=== PATIENT | female | born 1995 | race Hispanic/Latino ===

== ENCOUNTER 2020-08-06 13:48 | Outpatient (CLI) | payer OTHER ==
[2020-08-07 12:00] LABS: SARS-CoV-2 MS2 Positive; SARS-CoV-2 N Gene Negative; SARS-CoV-2 S Gene Negative; SARS-CoV-2 by NAA Not Detected (NotDetected); SARS-CoV-2 orf1ab Negative
== END 2020-08-06 13:49 | disposition home or self-care (01) ==
LOC: LABBT 13:48
PROVIDERS: ATTEND Advanced Practice Midwife
DX: Z20.828 Contact with and (suspected) exposure to other viral communicable diseases (principal)
CPT/HCPCS: 87635; U0003

== ENCOUNTER 2020-08-08 09:49 | Inpatient (IN) | payer OTHER ==
[2020-08-08] MEDS ORDERED: Ondansetron PF 4 MG/2 ML Vial IVP PRN ×2 (10:13→16:50)
[2020-08-08] MEDS ORDERED: Butorphanol Tartrate 1 MG/ML VIAL SLOW IVP PRN (10:13)
[2020-08-08] MEDS ORDERED: Acetaminophen 500 MG TAB PO PRN (10:13)
[2020-08-08] MEDS ORDERED: Methylergonovine 0.2 MG/ML VIAL IM PRN (10:13)
[2020-08-08] MEDS ORDERED: Misoprostol 200 MCG TAB PR PRN (10:13)
[2020-08-08] MEDS ORDERED: hydrALAZINE 20 MG/ML VIAL SLOW IVP PRN ×2 (10:13→16:50)
[2020-08-08] MEDS ORDERED: NS / Oxytocin 40 units/1000ml 1,000 ML IV PRN (10:13)
[2020-08-08] MEDS ORDERED: Lidocaine 1% (PF) 30 ML VIAL SC PRN (10:13)
[2020-08-08] MEDS ORDERED: Carboprost 250 MCG/ML AMP IM PRN (10:13)
[2020-08-08] MEDS ORDERED: HYDROcodone/Acetaminophen 5/325 mg Tablet PO PRN ×2 (10:13)
[2020-08-08] MEDS ORDERED: Ibuprofen 800 MG TAB PO PRN (10:13)
[2020-08-08] MEDS ORDERED: Diphenoxylate HCl/Atropine Tablet PO PRN ×2 (10:13)
[2020-08-08] MEDS ORDERED: Promethazine HCl 25 MG/ML VIAL IM PRN (10:13)
[2020-08-08] MEDS ORDERED: Lactated Ringer's 1,000 ML IV SCH (10:15)
[2020-08-08 10:23] VITALS: BMI 33.9
[2020-08-08 10:43] LABS: Hemoglobin 11.6 g/dL (12.0-16.0); Mean Corpuscular HGB CONC 35.1 g/dL (32.0-36.0); Mean Corpuscular Hemoglobin 28.8 pg (27.0-31.0); Mean Platelet Volume 8.9 fL (7.4-10.4); Platelet Count 260 thou/uL (130-400); RBC Distribution Width 12.8 % (11.5-14.5); Red Blood Cell (RBC) Count 4.02 mill/uL (4.20-5.40); White Blood Cell (WBC) Count 13.5 thou/uL (4.8-10.8)
[2020-08-08 11:21] LABS: HBSAg Index 0.16 S/CO (0-0.99); Hep B Surf Ag Non-Reactive S/CO (NonReactive); Syphilis Antibody Nonreactive (Nonreactive)
[2020-08-08] MEDS ORDERED: FLU VACC QS2020-21(6MOS UP)/PF 60 MCG/0.5 ML SYRINGE IM ONE (12:30)
[2020-08-08] MEDS ORDERED: NS / Oxytocin 40 units/1000ml 1,000 ML ONE (13:42)
[2020-08-08] MEDS ORDERED: Lidocaine 1% (PF) 30 ML VIAL ONE (13:42)
--- NOTE | 2020-08-08 14:41 | PDOC.LDHP ---
Labor and Delivery H&P Chief complaint: loss of fluid (at 0100) HPI: Loss of clear fluid at 0100. She reports contractions starting after. Affirms movement. Current gestational age (weeks): 38 (6 days) Due date: 08/16/20 Grav: 1 Para: 0 Current complications: other (Elevated AFP on QUAD.) Current medications: pre-lizandro vitamins Previous surgical history: other Allergies/Adverse Reactions: Allergies Allergy/AdvReac Type Severity Reaction Status Date / Time amoxicillin Allergy Verified 08/08/20 11:09 morphine Allergy Verified 08/08/20 11:09 Penicillins Allergy Verified 08/08/20 11:09 Social history: none - Physical Exam Vital signs reviewed and normal: yes General: breathing through contractions Lungs: nonlabored breathing Abdomen: gravid Extremeties: no edema FHT: category 1 - Vaginal Exam cm dilated: 4 Effacement: 90% Station: 0 - OB Labs Blood type: O RH: negative Antibody Screen: negative HIV: negative RPR: negative HEPSAg: negative 1 hour GCT: negative GBS: negative Urine drug screen: negative Rubella: immune Additional Labs: Elevated AFP on Quad. - Assessment L&D Assessment: term rupture in membranes Term patient in labor Elevated AFP 38 weeks gestation - Plan Plan: admit to L&D, informed consent obtained
--- NOTE | 2020-08-08 15:13 | PDOC.OPDEL ---
OB Operative/Delivery Note Delivery Dr/Surgeon: Light Pre-Delivery Diagnosis: active labor Procedure/Post Delivery Dx: spontaneous vaginal delivery Weeks gestation: 38 (6) Anesthesia: none - Findings A Sex: female - 1 min: 8 - 5 min: 9 - Additional Findings/Plan Placenta delivered: spontaneous Repaired Obstetrical Laceration: none (1st degree - unreparied. hemostatic) Estimated blood loss: 300mL Compilations/Other Findings: Delayed cord clamping Post delivery plan: routine recovery
[2020-08-08] MEDS ORDERED: Benzocaine-Menthol 82.5 ML CAN TOP PRN (16:50)
[2020-08-08] MEDS ORDERED: Lanolin Ointment 7 GM TUBE TOP PRN (16:50)
[2020-08-08] MEDS ORDERED: NS / Oxytocin 40 units/1000ml 1,000 ML IV SCH (16:50)
[2020-08-08] MEDS ORDERED: Misoprostol 200 MCG TAB VAG PRN (16:50)
[2020-08-08] MEDS ORDERED: Bisacodyl 10 MG SUPP PR PRN (16:50)
[2020-08-08] MEDS ORDERED: Milk Of Magnesia 30 ML UDCUP PO PRN (16:50)
[2020-08-08] MEDS ORDERED: traMADol HCl 50 MG TAB PO PRN (16:50)
[2020-08-08] MEDS: Ferrous Sulfate 325 MG TAB PO SCH (17:31)
[2020-08-08] MEDS: Docusate Calcium (SURFAK) 240 MG CAP PO SCH (19:45)
[2020-08-08] MEDS: traMADol HCl 50 MG TAB PO PRN (19:45)
[2020-08-08] MEDS: Ibuprofen 800 MG TAB PO SCH (23:42)
[2020-08-09] MEDS: traMADol HCl 50 MG TAB PO PRN (03:07)
[2020-08-09] MEDS: Ibuprofen 800 MG TAB PO SCH ×3 (05:32→21:44)
[2020-08-09 05:54] LABS: #Eosinphils 0.1 thou/uL (0.0-0.7); #Lymphocytes 2.5 thou/uL (1.20-3.40); #Monocytes 1.1 thou/uL (0.11-0.59); #Neutrophils 12.3 thou/uL (1.40-6.50); %Basophils 0.2 % (0.0-1.0); %Eosinophils 0.5 % (0.0-10.0); %Lymphocytes 15.6 % (21.0-51.0); %Monocytes 6.9 % (0.0-10.0); %Neutrophils 76.7 % (42.0-75.0); Hemoglobin 8.5 g/dL (12.0-16.0); Mean Corpuscular Hemoglobin 28.7 pg (27.0-31.0); Mean Corpuscular Volume 84.4 fL (78.0-98.0); Mean Platelet Volume 8.6 fL (7.4-10.4); Platelet Count 213 thou/uL (130-400); RBC Distribution Width 12.7 % (11.5-14.5); Red Blood Cell (RBC) Count 2.98 mill/uL (4.20-5.40); White Blood Cell (WBC) Count 16.1 thou/uL (4.8-10.8)
[2020-08-09] MEDS: Docusate Calcium (SURFAK) 240 MG CAP PO SCH ×2 (08:27→21:44)
[2020-08-09] MEDS: Prenatal Vitamin 1 TAB PO SCH (08:27)
[2020-08-09] MEDS: Ferrous Sulfate 325 MG TAB PO SCH ×2 (08:27→17:47)
[2020-08-09] MEDS ORDERED: Adacel (T-DAP) 0.5 ML SYRINGE IM ONE (16:50)
[2020-08-10] MEDS: Ibuprofen 800 MG TAB PO SCH (05:41)
[2020-08-10] MEDS ORDERED: FLU VACC QS2020-21(6MOS UP)/PF 60 MCG/0.5 ML SYRINGE IM ONE (07:45)
[2020-08-10 08:02] VITALS: BP 105/64; TEMP 98.5
[2020-08-10] MEDS: Docusate Calcium (SURFAK) 240 MG CAP PO SCH (10:05)
[2020-08-10] MEDS: Prenatal Vitamin 1 TAB PO SCH (10:05)
[2020-08-10] MEDS: Ferrous Sulfate 325 MG TAB PO SCH (10:05)
--- NOTE | 2020-08-10 13:08 | PDOC.PP ---
Post Progress Note Post Day #: 1 Subjective: G1 now p1 s/p with no complications. PO intake tolerated: yes Flatus: yes Ambulation: yes Vital Signs (12 hours) Temp Pulse Resp BP Pulse Ox 08/10/20 08:00 98.5 F 77 20 105/64 98 Weight Weight 210 lb - Physical Examination General: NAD Respiratory: non-labored breathing Abdominal: no distention Extremities: negative homans (B) Skin: no rash Neurological: no gross focal deficits Psychiatric: A&Ox3, normal affect Result Diagrams: 08/09/20 05:22 Additional Labs: Post Labs Hep Bs Antigen Non-Reactive S/CO (NonReactive) 08/08/20 10:27 Blood Type O NEGATIVE 08/08/20 10:58 (1) (spontaneous vaginal delivery) Code(s): O80 - ENCOUNTER FOR FULL-TERM UNCOMPLICATED DELIVERY Status: Acute (2) Elevated AFP Code(s): R77.2 - ABNORMALITY OF ALPHAFETOPROTEIN Status: Acute - Assessment/Plan PPD #1 s/p with NML exam.
--- NOTE | 2020-08-12 04:10 | PQF ---
THIS IS NOT MY PATIENT. THIS IS A PATIENT OF JUNO ALEKGilbert. CLINICAL DOCUMENTATION CLARIFICATION FORM: Dear : Lupe Black Date / Time: 08/12/2020 Please exercise your independent, professional judgment in responding to the clarification form. Clinical indicators are provided on the bottom of this form for your review Please check appropriate box(es): [ ] Associated Diagnosis: Acute blood loss Anemia [ ] Abnormal Laboratory findings not clinically significant [ ] Other diagnosis [ ] Unable to determine In addition, please specify: Present on Admission (POA): [ ] Yes [ ] No [ ] Unable to determine Physician Signature: Date/Time: For continuity of documentation, please document condition throughout progress notes and discharge summary. Thank You. To be completed by CDI/Coding staff for physician review: Present Clinical Indicators - Signs / Symptoms / Labs Results and Location in Medical Record [X] RBC 4.02, Hgb 11.6, Hct 32.9 Laboratory 08/08 [X] RBC 2.98, Hgb 8.5, Hct 25.1 Laboratory 08/09 [X] BP 94/53, Pulse 80, Resp 18, Temp 97.7 Vital signs 08/08 [X] Estimated blood loss: 300 ml L&D note 08/08 Light CNM Present Risk Factors Results and Location in Medical Record [X] 38 weeks of gestation L&D note 08/08 Light CNM [X] s/p L&D note 08/08 Light CNM [X] 1st degree laceration L&D note 08/08 Light CNM Present Treatments Results and Location in Medical Record [X] Series of hgb and hct labs Laboratory 08/08 [X] Ferrous sulfate 325 mg oral MAR 08/08 [X] IVF NS 1L DEC 22 CDS/Manager Diesel Signature: Nikky Yary Ames Phone #: [phone] Date/Time: 08/12/2020 0406 This is a permanent part of the Medical Record [facility]
--- NOTE | 2020-08-18 08:52 | PQF ---
CLINICAL DOCUMENTATION CLARIFICATION FORM: Dear : Xiao Caldwell Date / Time: 08/18/20 Please exercise your independent, professional judgment in responding to the clarification form. Clinical indicators are provided on the bottom of this form for your review Please check appropriate box(es): [ ] Associated Diagnosis: Acute blood loss Anemia [ ] Abnormal Laboratory findings not clinically significant [ ] Other diagnosis [ ] Unable to determine In addition, please specify: Present on Admission (POA): [ ] Yes [ ] No [ ] Unable to determine To be completed by CDI/Coding staff for physician review: Present Clinical Indicators - Signs / Symptoms / Labs Results and Location in Medical Record [x] RBC 4.02, Hgb 11.6, Hct 32.9 Labs 08/08 [x] RBC 2.98, Hgb 8.5, Hct 25.1 Labs 08/09 [x] BP 94/53, Pulse 80, Resp 18, Temp 97.7 Vital signs 08/08 [x] Estimated blood loss 300 ml L&D note 08/08 Light CNM Present Risk Factors Results and Location in Medical Record [x] 38 weeks of gestation L&D note 08/08 Light CNM [x ] s/p L&D note 08/08 Light CNM [ x] 1st degree laceration L&D note 08/08 Light CNM Present Treatments Results and Location in Medical Record [x ] Series of hgb and hct labs Lab 08/08 [x ] Ferrous sulfate 325 mg oral DEC 22 [x ] IVF NS 1L DEC 22 [ ] CDS/Flame Cutting Supervisor Signature: Phone #: Date/Time: This is a permanent part of the Medical Record [facility]
== END 2020-08-10 14:55 | disposition home or self-care (01) | DRG 807 ==
LOC: L&D/OP 09:49 → L&D-LIB 10:28 → 3SW 17:03
PROVIDERS: ADMIT Student in an Organized Health Care Education/Training Program; ATTEND Student in an Organized Health Care Education/Training Program
PROC: 10E0XZZ Delivery of Products of Conception, External Approach (ICD-10-PCS; principal; 2020-08-08)
PROC: 3E0334Z Introduction of Serum, Toxoid and Vaccine into Peripheral Vein, Percutaneous Approach (ICD-10-PCS; 2020-08-09)
PROC: 3E02340 Introduction of Influenza Vaccine into Muscle, Percutaneous Approach (ICD-10-PCS; 2020-08-10)
DX: O26.893 Other specified pregnancy related conditions, third trimester (principal); Z37.0 Single live birth; Z3A.38 38 weeks gestation of pregnancy; Z67.41 Type O blood, Rh negative; O70.0 First degree perineal laceration during delivery; R77.2 Abnormality of alphafetoprotein; Z20.828 Contact with and (suspected) exposure to other viral communicable diseases; Z88.1 Allergy status to other antibiotic agents; Z88.5 Allergy status to narcotic agent; Z88.0 Allergy status to penicillin; Z23 Encounter for immunization
CPT/HCPCS: 36415; 85025; 85027; 85461; 86780; 86850; 86900; 86901; 87340; 87635; 88307; 90384; 90471; 90662; 96372; 99285; G0008; J2001; J2405; U0003